=== PATIENT | female | born 1965 | race Caucasian/White ===

== ENCOUNTER 2017-07-13 06:00 | Day surgery (SDC) | payer OTHER ==
[~2017-07-13 06:00] MED LIST: SYNTHROID100 MCG PO
== END 2017-07-13 14:35 | disposition home or self-care (01) ==
LOC: U 06:00 → CIR.AMB 06:00
DX: N84.0 Polyp of corpus uteri (principal); N93.8 Other specified abnormal uterine and vaginal bleeding

== ENCOUNTER 2018-11-20 12:37 | Emergency (ER) | payer OTHER ==
[~2018-11-20] VITALS: Ht 160 cm; Wt 106.6 kg
[2018-11-20] MEDS ORDERED: SYNTHROID150 MCG PO (12:50)
== END 2018-11-20 16:10 | disposition home or self-care (01) ==
LOC: ER 12:37
DX: R10.32 Left lower quadrant pain (principal)

== ENCOUNTER 2020-12-03 08:00 | Outpatient (CLI) | payer OTHER ==
[~2020-12-03 08:00] MED LIST changes: +SYNTHROID150 MCG PO
== END 2020-12-03 08:30 | disposition home or self-care (01) ==
LOC: PPH VACUNA 08:00
DX: Z23 Encounter for immunization (principal)

== ENCOUNTER 2020-12-24 08:00 | Outpatient (CLI) | payer OTHER | END 2020-12-24 08:30 | disposition home or self-care (01) | LOC: PPH VACUNA 08:00 | DX: Z23 Encounter for immunization (principal) ==

== ENCOUNTER 2021-05-28 08:00 | Outpatient (CLI) | payer OTHER | END 2021-05-28 08:30 | disposition home or self-care (01) | LOC: PPH VACUNA 08:00 | PROVIDERS: ATTEND Emergency Medicine Pediatric Emergency Medicine | DX: Z23 Encounter for immunization (principal) ==

== ENCOUNTER 2022-06-30 05:15 | Day surgery (SDC) | payer OTHER ==
[~2022-06-30] VITALS: Ht 160 cm; Wt 108.9 kg
[~2022-06-30 05:15] MED LIST changes: +CANDESARTAN CILE8 MG PO
== END 2022-06-30 13:00 | disposition home or self-care (01) ==
LOC: CIR.AMB 05:15
PROVIDERS: ATTEND Obstetrics & Gynecology
DX: N95.0 Postmenopausal bleeding (principal); R93.89 Abnormal findings on diagnostic imaging of other specified body structures; N84.0 Polyp of corpus uteri; Z20.822 Contact with and (suspected) exposure to COVID-19

== ENCOUNTER 2023-05-12 07:45 | Day surgery (SDC) | payer OTHER | END 2023-05-12 13:15 | disposition home or self-care (01) | LOC: AMB-ENDOS 07:45 | PROVIDERS: ATTEND Surgery | DX: K63.5 Polyp of colon (principal); K57.30 Diverticulosis of large intestine without perforation or abscess without bleeding; Z20.822 Contact with and (suspected) exposure to COVID-19 ==